=== PATIENT | male | born 2005 | race Asian ===

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

== ENCOUNTER 2025-05-14 02:32 | Inpatient (IN) | payer MEDICAID ==
[~2025-05-14] VITALS: Ht 167.6 cm; Wt 66.0 kg
[2025-05-14 03:15] LABS: MEAN PLATELET VOLUME 8.3 FL (7.4-10.4); RED CELL DISTRIBUTION WIDTH 13.9 % (11.5-14.5)
[2025-05-14 03:15] LABS: LEUKOCYTE ESTERASE ,URINE NEGATIVE (Neg); NITRITES, URINE NEGATIVE (Neg); OCCULT BLOOD,URINE NEGATIVE (Neg); UA COLLECTION TYPE CLN CATCH MIDSTREAM
[2025-05-14 03:51] LABS: eGFR > 90 ML/MIN
[2025-05-14 04:04] LABS: CREATININE 0.76 MG/DL (0.60-1.10); TOTAL CARBON DIOXIDE 26.5 MMOL/L (24-32); eCRCL 140 ML/MIN
--- NOTE | 2025-05-14 04:20 | Physician Documentation ---
History of Present Illness ~ Chief Complaint: Bloody Stools Stated Complaint: RECTAL BLEED Time Seen by MD: 04:18 OK to notify your PCP?: Yes Primary Medical Doctor: NONE Source: patient, RN/MD, RN notes reviewed, old records Mode of Arrival: POV Exam Limitations: no limitations HPI 19 year old male seen in bed 03 presents to the emergency department complaining of bloody stools that have been present for two days. He endorses four instances of black tarry stools. Patient states he has been having non radiating epigastric pain for one month and his dark stools began two days ago. He describes his stools as black and states there is blood when he wipes. Patient denies any dizziness,nausea, or vomiting. Patient states he takes Aleve for his pain. Medication Reconciliation Allergies: Coded Allergies: Amoxicillin (Verified Allergy, Unknown, 05/10/14) WHEN HE WAS A BABY Miscellaneous Medications Home Med List (No Home Medications), (Reported) Past Medical History Past Medical History: No Pertinent History Past Surgical History: appendectomy Alcohol Use: None Drug Use: none Lives with: Family Lives In: Home Review of Systems All Other Systems at this time: Reviewed and Negative ROS As stated above in the HPI, otherwise all systems are reviewed and negative. Physical Exam Vital Signs: RN Vital Signs have been reviewed: Yes, Temperature: 98.1, Source: Temporal, Heart Rate: 68, Respiratory Rate: 16, BP: 123/78, Pulse Oximetry: 98, Weight: 66.650 Oxygen Flow Rate: 0 Pulse Oximetry Reflects: adequate oxygenation Physical Exam General: The patient is well developed, well nourished, nontoxic appearing and is in no acute distress. Skin: [place], warm and dry with no rashes. HEENT: Head was normocephalic and atraumatic. Eyes - pupils equal, round, reactive to light and accommodation. Extraocular movements were intact. Conjunctivae were nonicteric. Ears - bilateral tympanic membranes were normal. The mouth and oropharynx were clear with moist mucous membranes. There were no pharyngeal exudates or erythema. Neck: Supple and nontender. There was no jugular venous distention, lymphadenopathy, thyromegaly or masses. Chest: Clear to auscultation bilaterally without wheezes, rales or rhonchi. No accessory muscle use. No dullness to percussion. Heart: Rate regular and rhythmic. S1, S2. No murmurs. Palpation of the chest wall was normal. No rubs or thrills. Abdomen: Epigastric pain. Soft, nontender and nondistended. Positive bowel sounds. No guarding or rebound. No hepatosplenomegaly or palpable masses. Extremities: No cyanosis, clubbing or edema. The patient moves all extremities. Pulses were equal and symmetric. Neurologic: Cranial nerves II-XII were intact. Sensation was intact to light touch throughout. Motor strength was 5/5 in all four extremities. Deep tendon reflexes were intact in both upper and lower extremities. Psychologic: The patient was oriented to person, place and time. The patient demonstrated appropriate judgement and insight. Rectal: No fissures or masses appreciated. Black tarry stools. Progress Progress Note 8:20 a.m. discussed the case with Gastroenterology regarding management of the patient. Patient will be admitted for emergent EGD. Results/Orders Reviewed/noted all lab results: Yes Results/Orders Orders - KAMLESH LAWSON MD Straight Cath For Urine Sample (05/14/25 02:53) Hemocult Set Up (05/14/25 04:19) Monitor (05/14/25 04:30) Saline Lock (05/14/25 04:30) Ct Abdomen Pelvis (05/14/25 04:30) Page Hospitalist (05/14/25 08:15) Fill Out Med Reconciliation (05/14/25 08:15) Completed Orders - KAMLESH LAWSON MD Urinalysis, Cult If Indicated (05/14/25 02:53) Cbc/Diff (05/14/25 02:53) BMP (05/14/25 02:53) Lipase (05/14/25 02:53) CMP (05/14/25 02:53) Occult Bld Stool (05/14/25 04:30) Pt Inr (05/14/25 04:30) PTT (05/14/25 04:30) Ct Abdomen Pelvis (05/14/25 04:30) Pantoprazole 40mg Iv (Protonix 40mg Iv) (05/14/25 04:30) Diatr Meglu/Diatrizoate 30ml (Gastrograf (05/14/25 04:30) Iohexol 300mg/Ml 100ml Inj. (Omnipaque-3 (05/14/25 07:15) Hemogram (05/14/25 08:06) Pantoprazole 40mg Iv (Protonix 40mg Iv) (05/14/25 08:20) Medications Received in ER Medications (Trade) Dose Ordered Sig/Adrian Route PRN Reason Start Time Stop Time Status Last Admin Dose Admin (Protonix 40mg IV) 40 mg ONCE ONCE IV 05/14/25 04:30 05/14/25 04:32 DC 05/14/25 04:53 40 MG (Gastrografin 66-10 oral solution) 10 ml Q45M PO 05/14/25 04:30 05/14/25 06:01 DC 05/14/25 07:17 10 ML (Protonix 40mg IV) 40 mg ONCE ONCE IV 05/14/25 08:20 05/14/25 08:22 DC 05/14/25 08:29 40 MG Vital Signs 05/14/25 05/14/25 05/14/25 05/14/25 02:47 04:14 04:15 05:24 Temp 98.1 Pulse 79 68 67 Resp 18 14 16 18 B/P (MAP) 115/75 123/78 (93) 104/66 (79) Pulse Ox 100 98 100 O2 Flow Rate 0 05/14/25 05/14/25 05/14/25 05/14/25 05:46 06:22 07:05 08:32 Pulse 90 64 70 Resp 16 18 18 16 B/P (MAP) 107/53 (71) 92/54 (67) 100/60 (73) Pulse Ox 99 99 O2 Flow Rate 0 Laboratory Tests Test 05/14/25 03:03 05/14/25 03:08 05/14/25 04:30 05/14/25 08:21 Urine Specimen Description Cln catch midstream Urine Color Yellow Urine Clarity Clear Urine pH 6.0 Urine Specific [place] 1.025 Urine Protein Negative Urine Glucose (UA) Negative Urine Ketones Negative Urine Occult Blood Negative Urine Nitrite Negative Urine Bilirubin Negative Urine Urobilinogen 0.2 Urine Leukocyte Esterase Negative Urine Culture Indicated Not ind Volume Urine Centrifuged 10 ml Urine Comment White Blood Count 8.4 8.6 Red Blood Count 4.29 L 4.03 L Hemoglobin 13.0 L 12.2 L Hematocrit 38.2 L 35.6 L Mean Corpuscular Volume 89.0 88.3 Mean Corpuscular Hemoglobin 30.3 30.2 Mean Corpuscular Hemoglobin Concent 34.0 34.2 Red Cell Distribution Width 13.9 13.9 Platelet Count 195 179 Mean Platelet Volume 8.3 8.2 Neutrophils (%) (Auto) 48.4 Lymphocytes (%) (Auto) 37.7 Monocytes (%) (Auto) 9.7 Eosinophils (%) (Auto) 3.7 Basophils (%) (Auto) 0.5 Neutrophils # (Auto) 4.1 Lymphocytes # (Auto) 3.2 Monocytes # (Auto) 0.8 Eosinophils # (Auto) 0.3 Basophils # (Auto) 0.0 CBC Comment Prothrombin Time 10.5 INR International Normalized Ratio 1.0 Activated Partial Thromboplast Time 28 Coagulation Comments Sodium Level 139 Potassium Level 3.6 Chloride Level 105 Carbon Dioxide Level 26.5 Anion Gap 8 Blood Urea Nitrogen 29 H Creatinine 0.76 Estimated GFR/1.73 m2 > 90 BUN/Creatinine Ratio 38.2 H Glucose Level 87 Calcium Level 8.2 L Total Bilirubin 0.2 Aspartate Amino Transf (AST/SGOT) 17 Alanine Aminotransferase (ALT/SGPT) 28 Alkaline Phosphatase 67 Total Protein 6.5 Albumin 3.4 Globulin 3.1 Albumin/Globulin Ratio 1.1 Lipase 24 Chemistry Comments Stool Occult Blood Positive H Hematology Comments Re-Evaluation Re-Evaluation : Re-Evaluation: Improved Progress Patient was seen and examined. Patient is given reassurance. Patient was placed on a monitor laboratory work was obtained. Patient shows an elevated BUN of 29 with normal creatinine. Suggestive of upper GI bleed. Coagulation within normal limits CBC did show some mild anemia of 13 and 38 MCV 89 otherwise within normal limits. Patient was strongly guaiac positive. Patient had melanotic stools he has had four episodes in addition to the epigastric pain. Patient was then admitted to the hospitalist service after I consulted GI who recommends emergent EGD. CT scan with oral and IV contrast was obtained and showed no significant abnormalities. Hematocrit however dropped to 35.6. Continuous awake overnight monitor interpretation shows normal sinus rhythm heart rate 90s, no ectopy, normal, my interpretation. Pulse oximetry monitor interpretation shows normal oxygenation 98% room air, normal, my interpretation. EKG/XRAY/CT/US/VASC/MRI CT : Interpreted By: both With Contrast?: Yes Impression CT CT ABDOMEN PELVIS W/ IV ORAL CONTRAST INDICATION: ABD PAIN EXAM DATE: 05/14/2025 07:32 AM COMPARISON: None RADIATION DOSE: CTDIvol: 10 mGy, DLP: 492 mGy*cm PROCEDURE: Helical CT images were obtained of the abdomen and pelvis with IV contrast Sagittal and coronal reconstructions are provided. ORAL CONTRAST: yes ADDITIONAL IMAGES / REFORMATS: None All CT scans at this medical facility are performed using dose modulation techniques as appropriate to a performed exam including the following: Automated exposure control was utilized; adjustment of the MA and/or KV according to patient size; and use of iterative reconstruction technique. FINDINGS: LUNG BASE: Normal. LIVER: Normal. GALLBLADDER AND BILIARY TREE: No calcified gallstones. Normal caliber wall. No intra- or extrahepatic biliary ductal dilation. PANCREAS: Normal. SPLEEN: Normal. BOWEL: Normal. Appendix not seen. ADRENALS: Normal. KIDNEYS AND URETER: Normal. BLADDER: Normal. REPRODUCTIVE ORGANS: Normal. LYMPH NODES:No lymphadenopathy. PERITONEUM: No ascites or free air. No other fluid collection. VESSELS: Normal. RETROPERITONEUM: Normal. ABDOMINAL WALL: Normal. BONES: Normal. IMPRESSION: No acute intraabdominal abnormality. Medical Decision Making Additional info obtained from: old records Diff Dx GI Bleed:Consideration: Include: AE fistula, Angiodysplasia, Bleeding diathesis, Blood loss anemia, Carcinoma, Diverticulosis, Diverticulitis, Esophageal varicies, Esophagitis, Gastritis, Gastroenteritis, Inflammatory BD, Renee-Rivera syndrome, Meckel's diverticulum, PUD, Other Departure Admitted to Inpatient Unit: yes, to hospitalist, other (Gastroenterology) Admission Level of Care: Med/Surg with Tele Impression: Primary Impression: Upper GI bleed Additional Impression: Anemia due to blood loss Condition: Guarded Referrals: NO PRIMARY CARE PROVIDER (PCP) Education Educated: Patient, Family Educated regarding: diagnosis, treatment Signature Scribe Signature: Scribed for Kamlesh Lawson MD by Boogie Pulido . 05/14/25 04:31 Attestation: The note accurately reflects work and decisions made by me.Kamlesh Lawson MD 05/14/25 04:20 KAMLESH LAWSON MD May 14, 2025 04:20 BOOGIE COLLAZO May 14, 2025 04:31
[2025-05-14 04:31] LABS: OCCULT BLOOD STOOL POSITIVE (Neg)
[2025-05-14] MEDS: diatr meglu/diatrizoate 30ml oral sol.-(3 dose) bottle PO SCH (05:02)
[2025-05-14 05:09] LABS: APTT 28 SECONDS (22-32); INR 1.0 INR
[2025-05-14] MEDS ORDERED: iohexol 300mg/ml 100ml inj. ONE (07:15)
--- NOTE | 2025-05-14 08:31 | RADIOLOGY REPORT ---
CT CT ABDOMEN PELVIS W/ IV ORAL CONTRAST INDICATION: ABD PAIN EXAM DATE: 05/14/2025 07:32 AM COMPARISON: None RADIATION DOSE: CTDIvol: 10 mGy, DLP: 492 mGy*cm PROCEDURE: Helical CT images were obtained of the abdomen and pelvis with IV contrast Sagittal and co ruby reconstructions are provided. ORAL CONTRAST: yes ADDITIONAL IMAGES / REFORMATS: None All CT sca ns at this medical facility are performed using dose modulation techniques as appropriate to a perfor med exam including the following: Automated exposure control was utilized; adjustment of the MA and/o r KV according to patient size; and use of iterative reconstruction technique. FINDINGS: LUNG BASE: Normal. LIVER: Normal. GALLBLADDER AND BILIARY TREE: No calcified gallstones. Normal caliber wall. No intra- or extrahepatic biliary ductal dilation. PANCREAS: Normal. SPLEEN: Normal. BOWEL: Normal. Appendix not seen. ADRENALS: Normal. KIDNEYS AND URETER: Normal. BLADDER: Normal. REPRODUCTIVE ORGANS: Normal. LYMPH NODES:No lymphadenopathy. PERITONEUM: No ascites or free air. No other fluid collection. VESSELS: Normal. RETROPERITONEUM: Normal. ABDOMINAL WALL: Normal. BONES: Normal. IMPRESSION: No acute intraabdominal abnormality.
[2025-05-14 08:36] LABS: MEAN PLATELET VOLUME 8.2 FL (7.4-10.4); RED CELL DISTRIBUTION WIDTH 13.9 % (11.5-14.5)
--- NOTE | 2025-05-14 11:59 | HISTORY AND PHYSICAL-Residence ---
History & Physical Providers to CC Resident Creating Document: MAUREEN WALTER, RES CC: JESUS LOZANO MD ~ History of Present Illness Primary Medical Doctor: NONE Reason for Admit\Complaint: Melena History of Present Illness A 19-year-old presented to the ER with symptoms of black stools for the last two days(four episodes), patient stated that he has had epigastric abdominal pain on and off for the last two weeks, radiating to his back occasionally, rated the pain 4-6/10. Patient denies any pain with defecation, fever, itching , emesis or hematemesis. Patient also denied any change in bowel habits. Patient also denied any recent weight loss or fatigue. No history of recent travel or food poisoning or recent antibiotic usage. No past history of peptic ulcer disease Patient's point of contact is his mother Anna velasquez- [phone] Allergies: Coded Allergies: Amoxicillin (Verified Allergy, Unknown, 05/10/14) WHEN HE WAS A BABY Home Medications Home Medications Active Reported No Home Medications (Home Med List) Each Past Medical History Past Medical History None Past Surgical History Surgical History Comment Appendicectomy Past Social History Social History Comment Patient denies any smoking, alcohol or drug use. Alcohol Use: None Drug Use: None Lives with: Family Lives In: Home ROS All Other Systems: Reviewed and Negative ROS Constitutional: No fever, dizziness, weakness, no decrease in appetite HEENT: Normal vision. No sore throat, epistaxis, tinnitus Cardiovascular: No chest pain/discomfort, palpitations, syncope. No edema Respiratory: No sob, cough,hemoptysis Gastrointestinal: abdominal pain present, nausea, vomiting. No diarrhea, melena present Genitourinary: No frquency, urgency, incontinence, nocturia. No dysuria, hematuria Musculoskeletal: Normal, no pains Endocrine: No fatigue, polydipsia, polyuria. No heat or cold intolerance Neurologic: No headache, vertigo. No weakness, numbness or tingling of extremities Psychiatric: No hallucinations/delusions, no anhedonia, no suicidal ideation Hematologic: No bruises Exam Vitals: Vital Signs Date Time Temp Pulse Resp B/P (MAP) Pulse Ox O2 Delivery O2 Flow Rate FiO2 05/14/25 08:32 70 16 100/60 (73) 99 0 05/14/25 02:47 98.1 General: General: Young adult, AAO x4, not in apparent distress Head: Normocephalic with an atraumatic Eyes: Pupils- 3mm, reacting to light, conjunctiva- anicteric Nose and throat: No polyps, septum- normal, no mucosal ulcers Neck: Supple, no lymphadenopathy, no carotid bruit Chest-no tenderness over chest Respiratory: No use of accessory muscles of respiration, Bilateral normal breath sounds heard. No wheeze, rhochi or creps Cardiac: S1-S2 heard, rythm regular, no gallop/murmur Abdomen: Tenderness present epigastric region, complains of soreness throughout the abdomen, no organomegaly, bowel sounds- heard Extremities: no clubbing, no pedal edema, no deformities, peripheral pulses- 2+ Skin: Warm and dry Neuro:No focal deficit, gross cranial nerve exam- normal Diagnostic Data Last Recorded Lab Results: 05/14/25 0821 05/14/25 0308 Diagnostic Data: Laboratory Tests Test 05/14/25 03:08 Prothrombin Time 10.5 SECONDS (9.0-12.0) INR International Normalized Ratio 1.0 INR Activated Partial Thromboplast Time 28 SECONDS (22-32) Coagulation Comments Additional Plan Upper GI bleed-unknown cause Serial hemoglobin values- 13,12.2 (downtrending) Hematocrit- 38.2, MCV-89, BUN-29 No signs of any infection, Not on any antiplatelets, anticoagulants, pain medications Fecal occult blood test positive, Patient received IV Protonix 80 mg in the ER Consulted GI, EGD tomorrow morning Plan: -Initiated fluids, NS 100 mL/hour -Hemoglobin every q.4 hours ordered -Protonix infusion initiated -Consider blood transfusion if hemoglobin trends down to less than 7 -NPO from midnight Code Status: Full code DVT Prophylaxis: SCDs Lines/Tubes: PIV Gi Prophylaxis: Protonix Nutrition: Regular diet, NPO from midnight Prognosis: Guarded Disposition: Patient will undergo his EGD tomorrow by Dr. Beau Walter MD Internal medicine resident,PGY-1 Date of Service: May 14, 2025 Billing Provider: JESUS LOZANO MD, JAHNAVI, RES May 14, 2025 11:59
[2025-05-14] MEDS ORDERED: ondansetron/PF 4mg/2ml inj IV PRN (12:20)
[2025-05-14] MEDS: normal saline 1000ml 1,000 ML IV SCH (12:20)
[2025-05-14] MEDS ORDERED: magnesium hydroxide 30ml (MOM) UD suspension PO PRN (12:20)
[2025-05-14] MEDS ORDERED: potassium Cl 20 mEq SR tablet PO PRN ×2 (12:20)
[2025-05-14] MEDS ORDERED: magnesium Cl slow-release 64mg tablet PO PRN (12:20)
[2025-05-14] MEDS ORDERED: magnesium sulf-water 2g/50mL 50 ML IV PRN (12:20)
[2025-05-14] MEDS ORDERED: mag hydrox/Alum hydrox/simeth 30ml oral suspension PO PRN (12:20)
[2025-05-14] MEDS ORDERED: potassium Cl 40MEQ/1/2NS 520ml 520 ML IV PRN (12:20)
[2025-05-14] MEDS ORDERED: magnesium sulf-water 4G/100mL 100 ML IV PRN (12:20)
[2025-05-14 13:09] LABS: MEAN PLATELET VOLUME 8.4 FL (7.4-10.4); RED CELL DISTRIBUTION WIDTH 13.9 % (11.5-14.5)
[2025-05-14] MEDS: pantoprazole 40MG/NS 100ML BAG 100 ML IV SCH (16:00)
[2025-05-14 16:16] LABS: MEAN PLATELET VOLUME 8.5 FL (7.4-10.4); RED CELL DISTRIBUTION WIDTH 13.9 % (11.5-14.5)
[2025-05-14 18:00] VITALS: BP 104/61; PULSE 63; RESP 14; TEMP 97.6; O2SAT 100
[2025-05-14 20:00] VITALS: RESP 14; O2SAT 100
[2025-05-14] MEDS: K and/or MAG REPLACEMENT MC SCH (20:00)
[2025-05-14] MEDS: docusate sod 100mg capsule PO SCH (20:00)
[2025-05-14 20:57] LABS: MEAN PLATELET VOLUME 8.6 FL (7.4-10.4); RED CELL DISTRIBUTION WIDTH 14.0 % (11.5-14.5)
[2025-05-14 22:00] VITALS: BP 100/40; PULSE 60; RESP 14; TEMP 98.4; O2SAT 100
[2025-05-15] VITALS (20 sets, daily range): BP systolic 92–119; BP diastolic 41–65; PULSE 57–87; RESP 11–26; TEMP 97.3–98.4; O2SAT 96–100
--- NOTE | 2025-05-15 00:37 | CONSULTATION ---
DATE OF CONSULTATION: 05/14/2025 DICTATING PHYSICIAN: Fabi Navarro MD REASON FOR CONSULTATION: Melena. HISTORY OF PRESENT ILLNESS: The patient is 19 years old, came to Emergency Department with complaints of severe abdominal pain going on for a month or so. Recently, the abdominal pain got worse, described pain to be at a rate of 7/10 with some radiation to the back. No nausea and no vomiting. The patient has not had any hematemesis. He has been taking no excessive amount of aspirin or nonsteroidal antiinflammatory. No history of any alcohol. He does take Aleve periodically. He has been having melenic stool for a couple of days, and he has not had any medication for this. PAST MEDICAL HISTORY: Noncontributory. FAMILY HISTORY: Noncontributory. PERSONAL HISTORY: Noncontributory. REVIEW OF SYSTEMS: A 12-point review of systems, same as history of present illness. PHYSICAL EXAMINATION: GENERAL: He is awake, alert, appears to be in no apparent distress. VITAL SIGNS: Normal. HEART: Normal. LUNGS: Normal. ABDOMEN: Soft, nontender. No masses. No organomegaly. Bowel sounds are present. EXTREMITIES: Reveal no clubbing, cyanosis, or edema. CENTRAL NERVOUS SYSTEM: Cranial nerves bilaterally within normal limits. HEMATOLOGIC: Reveals no anemia, petechiae, or purpura. PSYCHOLOGIC: Within normal limits. LABORATORY VALUES: Reviewed which revealed normal hemoglobin and hematocrit. Other values were essentially unremarkable. Stool hemoccult was positive. IMAGING DATA: CT of the abdomen was essentially normal. IMPRESSION: A 19-year-old young man admitted with abdominal pain and melena. Hemodynamically stable. Hemoglobin and hematocrit are stable. Peptic ulcer disease is the likely possibility. RECOMMENDATIONS: Continue current treatment including IV Protonix. Diagnostic endoscopy will be performed. The risks and benefits explained, understands and wishes to proceed. The rest of the management depends on the findings of endoscopy. Fabi Navarro MD TID: [id number] RECEIPT: [id number] NICKI/NAKUL/CHACHO
[2025-05-15 01:24] LABS: MEAN PLATELET VOLUME 8.3 FL (7.4-10.4); RED CELL DISTRIBUTION WIDTH 14.0 % (11.5-14.5)
[2025-05-15 06:39] LABS: MEAN PLATELET VOLUME 8.4 FL (7.4-10.4); RED CELL DISTRIBUTION WIDTH 13.9 % (11.5-14.5)
[2025-05-15 07:01] LABS: CREATININE 0.79 MG/DL (0.60-1.10); TOTAL CARBON DIOXIDE 25.4 MMOL/L (24-32); eCRCL 135 ML/MIN; eGFR > 90 ML/MIN
[2025-05-15] MEDS ORDERED: fentaNYL/PF 50MCG/1 ML 2ML syringe ONE (10:05)
[2025-05-15] MEDS ORDERED: midazolam 1 mg/ML 2ml injection ONE (10:05)
[2025-05-15] MEDS ORDERED: propofol inj 20 ML IV ONE (10:05)
[2025-05-15] MEDS ORDERED: LIDOcaine 2% Viscous 15ml cup ONE (10:12)
[2025-05-15 11:17] LABS: MEAN PLATELET VOLUME 8.6 FL (7.4-10.4); RED CELL DISTRIBUTION WIDTH 14.1 % (11.5-14.5)
--- NOTE | 2025-05-15 12:45 | PROGRESS NOTE- Residence ---
Progress Note - Resident Providers to CC Resident Creating Document: JOHN CHAVEZ RES ~ Antibiotic Timeout Antibiotic Ordered?: No Subjective Seen and examined the patient at bedside. He is still complaining of little bit of melena. No bleeding per rectum, abdominal pain, vomiting, hematemesis on today. Underwent upper GI endoscopy today and reports showed nonbleeding duodenal ulcers with no stigmata of bleeding with a normal esophagus, stomach , and normal D2. Objective Vital Signs Date Time Temp Pulse Resp B/P (MAP) Pulse Ox O2 Delivery O2 Flow Rate FiO2 05/15/25 11:30 97.4 64 19 92/45 (61) 100 Room Air 05/15/25 11:10 0.0 Result Diagram: 05/15/25 1107 05/15/25 0612 General: Young adult, alert, awake, oriented to time place person. Not in acute distress Head: Normocephalic with an atraumatic Eyes: Pupils- 3mm, reacting to light, conjunctiva- anicteric Nose and throat: No polyps, septum- normal, no mucosal ulcers Neck: Supple, no lymphadenopathy, no carotid bruit Chest-no tenderness over chest Respiratory: No use of accessory muscles of respiration, Bilateral normal breath sounds heard. No wheeze, rhochi or creps Cardiac: S1-S2 heard, rythm regular, no gallop/murmur/rub Abdomen: No tenderness on epigastric region. no organomegaly, bowel sounds- heard Extremities: no clubbing, no pedal edema, no deformities, peripheral pulses- 2+ Skin: Warm and moist. Neuro: No focal neurological deficits Coagulation Studies Laboratory Tests Test 05/14/25 03:08 Prothrombin Time 10.5 SECONDS (9.0-12.0) INR International Normalized Ratio 1.0 INR Activated Partial Thromboplast Time 28 SECONDS (22-32) Coagulation Comments Advance Care Planning Advanced Care plannin - 30 Minutes Assessment Assessment A 19-year-old presented to the ER with symptoms of black stools for the last two days(four episodes), patient stated that he has had epigastric abdominal pain on and off for the last two weeks, radiating to his back occasionally, rated the pain 4-6/10. Patient denies any pain with defecation, fever, itching , emesis or hematemesis. Patient also denied any change in bowel habits. Patient also denied any recent weight loss or fatigue. No history of recent travel or food poisoning or recent antibiotic usage. No past history of peptic ulcer disease. Patient's point of contact is his mother Anna velasquez- [phone]. Dr. Yanez is on board patient underwent upper GI endoscopy. Plan Plan Acute upper GI bleed secondary to likely peptic ulcer disease Above likely secondary to possible H pylori infection Underwent upper GI scope on today with Dr. Yanez. Reviewed the upper GI endoscopy report and it is showing nonbleeding duodenal ulcers with no stigmata of bleeding. Normal esophagus, stomach, 2nd portion of duodenum Biopsied(pending biopsy results. recommended to continue Protonix drip. Patient may need the triple drug regimen based upon the biopsy results if positive for H pylori. Fecal occult blood was positive H&H is 10.3/30.6 and improved to 11.3. We will continue to monitor H and H every 4 hours and we will transfuse if hemoglobin less than 7 On full liquid diet and will advance to regular diet if tolerated after Normocytic normochromic anemia H&H is maintaining at 11.3/33.2, and it is improving Mild Protein malnutrition Hypoalbuminemia Albumin 2.7 We will continue to monitor CMP Fentanyl and benzodiazepines are positive in urine analysis but received midazolam and fentanyl Code Status: Full code DVT Prophylaxis: SCDs Lines/Tubes: PIV Gi Prophylaxis: Protonix drip Nutrition: Full liquid diet and advance the diet to regular diet as tolerated Prognosis: Guarded John Chavez IM resident, PGY 2 Date of Service: May 15, 2025 Billing Provider: JESUS LOZANO MD, VENKATESH, RES May 15, 2025 12:45
[2025-05-15 15:48] LABS: URINE AMPHETAMINE SCREEN NEGATIVE (Neg); URINE BARBITUATE SCREEN NEGATIVE (Neg); URINE BENZODIAZEPINES SCREEN POSITIVE (Neg); URINE CANNABINOID SCREEN NEGATIVE (Neg); URINE COCAINE SCREEN NEGATIVE (Neg); URINE METHADONE SCREEN NEGATIVE (Neg); URINE OPIATE SCREEN NEGATIVE (Neg); URINE PHENCYCLIDINE SCREEN NEGATIVE (Neg)
[2025-05-15 18:00] LABS: MEAN PLATELET VOLUME 8.6 FL (7.4-10.4); RED CELL DISTRIBUTION WIDTH 14.2 % (11.5-14.5)
[2025-05-15 20:47] LABS: MEAN PLATELET VOLUME 8.3 FL (7.4-10.4); RED CELL DISTRIBUTION WIDTH 13.7 % (11.5-14.5)
[2025-05-16 06:00] VITALS: BP 96/51; PULSE 56; RESP 16; TEMP 97.7; O2SAT 98
[2025-05-16 06:03] LABS: MEAN PLATELET VOLUME 8.6 FL (7.4-10.4); RED CELL DISTRIBUTION WIDTH 13.8 % (11.5-14.5)
[2025-05-16 06:13] LABS: CREATININE 0.78 MG/DL (0.60-1.10); TOTAL CARBON DIOXIDE 24.1 MMOL/L (24-32); eCRCL 136 ML/MIN; eGFR > 90 ML/MIN
[2025-05-16 08:00] VITALS: RESP 16; O2SAT 98
[2025-05-16] MEDS: normal saline 1000ml 1,000 ML IV ONE (09:04)
[2025-05-16] MEDS ORDERED: PANT40TA54 PO (10:29)
--- NOTE | 2025-05-16 18:03 | DISCHARGE SUMMARY-Residence ---
Discharge Summary Providers to Resident Creating Document: JOHN CHAVEZYONY ~ Discharge Summary Admission Diagnosis: GI bleed Hospital Course DATE OF ADMISSION: 05/14/2025 DATE OF DISCHARGE: 05/16/[address] ABDOMEN PELVIS W/ IV ORAL CONTRAST INDICATION: ABD PAIN EXAM DATE: 05/14/2025 07:32 AM COMPARISON: None RADIATION DOSE: CTDIvol: 10 mGy, DLP: 492 mGy*cm PROCEDURE: Helical CT images were obtained of the abdomen and pelvis with IV contrast Sagittal and coronal reconstructions are provided. ORAL CONTRAST: yes ADDITIONAL IMAGES / REFORMATS: None All CT scans at this medical facility are performed using dose modulation techniques as appropriate to a performed exam including the following: Automated exposure control was utilized; adjustment of the MA and/or KV according to patient size; and use of iterative reconstruction technique. FINDINGS: LUNG BASE: Normal. LIVER: Normal. GALLBLADDER AND BILIARY TREE: No calcified gallstones. Normal caliber wall. No intra- or extrahepatic biliary ductal dilation. PANCREAS: Normal. SPLEEN: Normal. BOWEL: Normal. Appendix not seen. ADRENALS: Normal. KIDNEYS AND URETER: Normal. BLADDER: Normal. REPRODUCTIVE ORGANS: Normal. LYMPH NODES:No lymphadenopathy. PERITONEUM: No ascites or free air. No other fluid collection. VESSELS: Normal. RETROPERITONEUM: Normal. ABDOMINAL WALL: Normal. BONES: Normal. IMPRESSION: No acute intraabdominal abnormality. Discharge Diagnosis\Comment: Upper GI bleed Peptic ulcer disease Duodenal ulcer Biopsy(pending) Normocytic normochromic anemia Mild protein malnutrition Hypoalbuminemia Operations\Procedures: Upper GI endoscope Impression normal esophagus, normal stomach with biopsy, normal 2nd portion of duodenum. Nonbleeding duodenal ulcers with no stigmata of bleeding. Consultants: Dr. Yanez Complications: None Condition on DC: Stable New Medications: Pantoprazole Sodium (Pantoprazole Sodium) 40 Mg Tablet. 40 MG PO BID for 30 Days, #60 TAB.SR Discharge Summary: HPI at the time of admission per admitting physician A 19-year-old presented to the ER with symptoms of black stools for the last two days(four episodes), patient stated that he has had epigastric abdominal pain on and off for the last two weeks, radiating to his back occasionally, rated the pain 4-6/10. Patient denies any pain with defecation, fever, itching , emesis or hematemesis. Patient also denied any change in bowel habits. Patient also denied any recent weight loss or fatigue. No history of recent travel or food poisoning or recent antibiotic usage. No past history of peptic ulcer disease. Patient's point of contact is his mother Anna velasquez- [phone] Course in the hospital Admitted for upper GI bleed. Evaluated with CBC, CMP and fecal occult blood. Underwent GI endoscopy with Dr. Yanez and showed nonbleeding duodenal ulcer with no stigmata of bleeding. Normal esophagus, stomach, 2nd portion of duodenum and biopsied stomach and results are pending. He was on Protonix drip. Monitored hemoglobin and hematocrit every 4 hourly and hemoglobin was dropped to 10.3 from 13 and then maintain at 10-11. After the endoscopy we overload full liquid diet and patient tolerated the 10 we advanced diet to regular diet. Mild protein malnutrition with hypoalbuminemia of 2.7. Fentanyl and benzodiazepines are positive in urine analysis but received midazolam and fentanyl the hospital. Discharged on Protonix 40 mg p.o. b.i.d. for 1 month and we recommended to follow up with Dr. Yanez in 1 month and needs to follow up with biopsy report. Examination time of discharge Vital Signs Date Time Temp Pulse Resp B/P (MAP) Pulse Ox O2 Delivery O2 Flow Rate FiO2 05/16/25 08:00 16 98 Room Air 05/16/25 06:00 97.7 56 96/51 (66) 05/15/25 11:10 0.0 General: Young adult, alert, awake, oriented to time place person. Not in ac [place] distress Head: Normocephalic with an atraumatic Eyes: Pupils- 3mm, reacting to light, conjunctiva- anicteric Nose and throat: No polyps, septum- normal, no mucosal ulcers Neck: Supple, no lymphadenopathy, no carotid bruit Chest-no tenderness over chest Respiratory: No use of accessory muscles of respiration, Bilateral normal breath sounds heard. No wheeze, rhochi or creps Cardiac: S1-S2 heard, rythm regular, no gallop/murmur/rub Abdomen: No tenderness on epigastric region. no organomegaly, bowel sounds- heard Extremities: no clubbing, no pedal edema, no deformities, peripheral pulses- 2+ Skin: Warm and moist. Neuro: No focal neurological deficits Laboratory Tests Test 05/14/25 20:28 05/15/25 01:05 05/15/25 06:12 05/15/25 11:07 White Blood Count 6.8 X10'3 6.5 X10'3 4.5 X10'3 4.5 X10'3 Red Blood Count 3.57 X10'6 3.46 X10'6 3.44 X10'6 3.71 X10'6 Hemoglobin 10.8 g/dl 10.5 g/dl 10.3 g/dl 11.3 g/dl Hematocrit 31.7 % 30.8 % 30.6 % 33.2 % Mean Corpuscular Volume 89.0 FL 89.0 FL 89.1 FL 89.4 FL Mean Corpuscular Hemoglobin 30.4 PG 30.3 PG 30.1 PG 30.5 PG Mean Corpuscular Hemoglobin Concent 34.1 g/dL 34.1 g/dL 33.8 g/dL 34.1 g/dL Red Cell Distribution Width 14.0 % 14.0 % 13.9 % 14.1 % Platelet Count 162 X10'3 153 X10'3 142 X10'3 154 X10'3 Mean Platelet Volume 8.6 FL 8.3 FL 8.4 FL 8.6 FL Hematology Comments Neutrophils (%) (Auto) 40.9 % Lymphocytes (%) (Auto) 44.1 % Monocytes (%) (Auto) 9.8 % Eosinophils (%) (Auto) 4.7 % Basophils (%) (Auto) 0.5 % Neutrophils # (Auto) 1.8 X10'3 Lymphocytes # (Auto) 2.0 X10'3 Monocytes # (Auto) 0.4 X10'3 Eosinophils # (Auto) 0.2 X10'3 Basophils # (Auto) 0.0 X10'3 CBC Comment Sodium Level 141 MMOL/L Potassium Level 3.7 MMOL/L Chloride Level 109 MMOL/L Carbon Dioxide Level 25.4 MMOL/L Anion Gap 7 Blood Urea Nitrogen 10 MG/DL Creatinine 0.79 MG/DL Estimated GFR/1.73 m2 > 90 ML/MIN BUN/Creatinine Ratio 12.7 Glucose Level 85 MG/DL Calcium Level 7.6 MG/DL Total Bilirubin 0.8 MG/DL Aspartate Amino Transf (AST/SGOT) 16 U/L Alanine Aminotransferase (ALT/SGPT) 26 U/L Alkaline Phosphatase 42 IU/L Total Protein 5.3 G/DL Albumin 2.7 G/DL Globulin 2.6 G/DL Albumin/Globulin Ratio 1.0 Chemistry Comments Test 05/15/25 14:55 05/15/25 17:28 05/15/25 20:30 05/16/25 04:44 Urine Opiates Screen Negative Urine Methadone Screen Negative Urine Fentanyl Screen Positive Urine Barbiturates Screen Negative Urine Phencyclidine Screen Negative Urine Amphetamines Screen Negative Urine Benzodiazepines Screen Positive Urine Cocaine Screen Negative Urine Cannabinoids Screen Negative Drug Screen Comment White Blood Count 5.6 X10'3 6.6 X10'3 5.4 X10'3 Red Blood Count 3.53 X10'6 3.50 X10'6 3.44 X10'6 Hemoglobin 10.7 g/dl 10.8 g/dl 10.4 g/dl Hematocrit 31.6 % 31.1 % 30.7 % Mean Corpuscular Volume 89.6 FL 88.8 FL 89.4 FL Mean Corpuscular Hemoglobin 30.3 PG 30.8 PG 30.2 PG Mean Corpuscular Hemoglobin Concent 33.9 g/dL 34.6 g/dL 33.7 g/dL Red Cell Distribution Width 14.2 % 13.7 % 13.8 % Platelet Count 150 X10'3 149 X10'3 144 X10'3 Mean Platelet Volume 8.6 FL 8.3 FL 8.6 FL Hematology Comments Neutrophils (%) (Auto) 52.6 % Lymphocytes (%) (Auto) 34.9 % Monocytes (%) (Auto) 8.4 % Eosinophils (%) (Auto) 3.8 % Basophils (%) (Auto) 0.3 % Neutrophils # (Auto) 2.8 X10'3 Lymphocytes # (Auto) 1.9 X10'3 Monocytes # (Auto) 0.5 X10'3 Eosinophils # (Auto) 0.2 X10'3 Basophils # (Auto) 0.0 X10'3 CBC Comment Sodium Level 138 MMOL/L Potassium Level 3.7 MMOL/L Chloride Level 106 MMOL/L Carbon Dioxide Level 24.1 MMOL/L Anion Gap 8 Blood Urea Nitrogen 9 MG/DL Creatinine 0.78 MG/DL Estimated GFR/1.73 m2 > 90 ML/MIN BUN/Creatinine Ratio 11.5 Glucose Level 66 MG/DL Calcium Level 7.8 MG/DL Total Bilirubin 0.9 MG/DL Aspartate Amino Transf (AST/SGOT) 16 U/L Alanine Aminotransferase (ALT/SGPT) 26 U/L Alkaline Phosphatase 43 IU/L Total Protein 5.4 G/DL Albumin 2.7 G/DL Globulin 2.7 G/DL Albumin/Globulin Ratio 1.0 Chemistry Comments Discharge advice Follow up with pcp in 1 week. Follow up with Gastric biopsy reports. Follow up with in her office after 1 month, continue tab.protonix 40mg po BID for 1 month. Report ER or call 911 if emergency *Problems/Diagnosis: (1) Normocytic normochromic anemia (2) Mild protein malnutrition (3) Hypoalbuminemia (4) Upper GI bleed (5) Duodenal ulcer (6) Upper GI bleed Status: Acute (7) Anemia due to blood loss Status: Acute Total Time Spent on D/C: > 30 Minutes Date of Service: May 16, 2025 Billing Provider: JESUS LOZANO MD, VENKATESH, RES May 16, 2025 17:52
--- NOTE | 2025-05-17 14:40 | PATHOLOGY REPORT ---
[facility] [address] [place] [address] SURGICAL PATHOLOGY REPORT CaseNumber: [id number] Surgeon:Fabi Navarro M.D. CLINICAL INFORMATION CLINICAL INFORMATION: Epigastric abdominal pain, melena. DIAGNOSIS DIAGNOSIS: GASTRIC ANTRUM, BIOPSIES X 4 - MODERATE CHRONIC INFLAMMATION AND REACTIVE CHANGES - NO INTESTINAL METAPLASIA BY PAS STAINING - NO DYSPLASTIC OR NEOPLASTIC FEATURES - RARE H. PYLORI ORGANISMS ARE HIGHLIGHTED BY IMMUNOHISTOCHEMISTRY MICROSCOPIC DESCRIPTION MICROSCOPIC DESCRIPTION: Reviewed is a single H&E-stained slide showing sections and levels of four f ragments of gastric antral-type mucosa. Within the stroma, chronic inflammatory cells are moderately increased in number and are associated with reactive stromal and glandular changes. Neutrophils are not significantly increased. No intestinal metaplasia is highlighted by PAS staining. There are al so no dysplastic or neoplastic features. However, rare H. pylori organisms are highlighted by immuno histochemistry. GROSS DESCRIPTION GROSS DESCRIPTION: Received in a container of formalin labeled with the patient's name, number, and " antrum BX" are 4 pieces of rodriguez tissue 0.2-0.5 x 0.2 x 0.1 cm submitted entirely as A1. The time at [facility] the specimen was removed was 1016. The time at which the specimen was placed in formalin was 1017 . Electronically signed by: Derrick Mata M.D. 05/17/2025 2:07:00 PM
== END 2025-05-16 11:24 | disposition home or self-care (01) | DRG 241 ==
LOC: ER 02:34 → ED HOLD 08:28 → PCU 3S 13:08 → SUR 3N 05-15 15:25
PROVIDERS: ADMIT Family Medicine; ATTEND Family Medicine
PROC: BW211ZZ Computerized Tomography (CT Scan) of Abdomen and Pelvis using Low Osmolar Contrast (ICD-10-PCS; 2025-05-14)
PROC: 0DB68ZX Excision of Stomach, Via Natural or Artificial Opening Endoscopic, Diagnostic (ICD-10-PCS; principal; 2025-05-15 10:07)
DX: K26.4 Chronic or unspecified duodenal ulcer with hemorrhage (principal); E44.1 Mild protein-calorie malnutrition; E88.09 Other disorders of plasma-protein metabolism, not elsewhere classified; D50.0 Iron deficiency anemia secondary to blood loss (chronic); Z90.49 Acquired absence of other specified parts of digestive tract; Z88.1 Allergy status to other antibiotic agents; Z68.23 Body mass index [BMI] 23.0-23.9, adult
CPT/HCPCS: 36415; 43239; 74177; 80053; 80305; 81003; 82272; 83036; 83605; 83690; 85025; 85027; 85610; 85730; 87081; 96374; 99285; G0378; J2250; J2470; J2704; J3010; J7030; J7040; Q9963; Q9967